=== PATIENT | male | born 1975 | race Caucasian/White ===

== ENCOUNTER 2018-11-02 10:55 | Inpatient (IN) | payer OTHER ==
[~2018-11-02] VITALS: Ht 182.9 cm; Wt 120.2 kg
--- NOTE | 2018-11-02 15:33 | NUR ---
PRE ASSESSMENT: A 42 year old male in intake A/O X 4. He presents with flushed complexion and odorous of ETOH. He reports a 20 yr history of drinking but problematic for the last 7.5 years. He states he is drinking 3000 ml daily and is drinking in the middle of the night and in the morning. He states he cannot function and needs help. Last drank 750 ml today at 1100. BP 144/104 P 102 R 18 O2sat 96% He denies allergies. He denies seizure hx. His gait is steady. Will assess on unit.
[2018-11-02] MEDS ORDERED: TEST200V3 IM (15:45)
--- NOTE | 2018-11-02 16:37 | NUR ---
ADMISSION: A 42 year old male admitted for medically supervised withdrawal from ETOH (white wine).He denies allergies. He denies seizure history. He is A/O X 4 and denies S/I and H/I.He is odorous of ETOH and presents with a flushed complexion. Fine tremors noted to hands. He presents with anxious mood and restricted affect. He states he has never been in in a psychiatric facility and has not experienced ideations or attempts in the past. He does report a history of anxiety. He reports low Testosterone levels and takes 1 ml Q 15 days of Testosterone IM which he brought to facility. He reports a PCP but cannot think of his name at this time. he had a Gastric Bypass in 2006 and lost 100 lbs. He reports he left his job in January at a [employer] due to stress and saw a Psychiatrist for anxiety and stress and filled out paper work to get short term disability and the time ran out to file paperwork so he ended up quitting and not returning to work. He reports he has too much time on his hands and his drinking is out of control. BP 144/104 P 102 R 18 O2 sat 96% SUBSTANCE USE: He reports a 20 yr history of drinking but problematic for the last 7.5 years. He states he is drinking 3000 ml daily and is drinking in the middle of the night and in the morning. He reports he wakes up in the middle of the night shaking and has to drink wine to get back to sleep. He states he also blacks out on occasion. He states he cannot function and is unemployable. He is having problems with his and she is fed up. He reports she drinks but does not have a problem and it is causing them to argue Last drank 750 ml today at 1100. He states he stopped for about a week on his own 4 months ago but the nausea,vomiting sweats and tremors were too much for him to handle. He wants to stop drinking so he can function and go back to work, be a better man and . He reports some barriers he is concerned about are that all of his friends and family are drinkers and social activities are surrounded by alcohol. He reports he has never been to treatment before. Oriented him to staff and unit. UDS collected. Skin check done. Skin warm dry and intact. Will provide safe and supportive environment.
[2018-11-02 17:02] LABS: *AMPHETAMINE, URINE NEGATIVE (NEGATIVE); *BARBITURATE, URINE NEGATIVE (NEGATIVE); *CANNABINOID, URINE NEGATIVE (NEGATIVE); *COCCAINE, URINE NEGATIVE (NEGATIVE); *OPIATE, URINE NEGATIVE (NEGATIVE); *PHENCYCLIDINE SCREEN,URINE NEGATIVE (NEGATIVE)
[2018-11-02] MEDS ORDERED: HYDROXYZINE PAMOATE 25 MG CAPSULE PO PRN (17:30)
[2018-11-02] MEDS ORDERED: MIRALAX 17 GM POWD.PACK PO PRN (17:30)
[2018-11-02] MEDS ORDERED: LORAZEPAM 2 MG/1 ML VIAL IM PRN (17:30)
[2018-11-02] MEDS ORDERED: ACETAMINOPHEN 325 MG TABLET PO PRN (17:30)
[2018-11-02] MEDS ORDERED: MAGNESIUM HYDROXIDE 30 ML LIQUID UDC PO PRN (17:30)
[2018-11-02] MEDS ORDERED: MAG HYDROX/AL HYDROX/SIMETH 30 ML LIQUID UDC PO PRN (17:30)
[2018-11-02] MEDS ORDERED: IBUPROFEN 600 MG TABLET PO PRN (17:30)
[2018-11-02] MEDS ORDERED: ONDANSETRON 4 MG/2 ML VIAL IM PRN (17:30)
[2018-11-02] MEDS ORDERED: ONDANSETRON ODT 4 MG TAB.RAPDIS SL PRN (17:30)
[2018-11-02] MEDS ORDERED: DIAZEPAM 5 MG TABLET PO PRN (17:30)
[2018-11-02] MEDS ORDERED: THIAMINE HCL 200 MG/2 ML VIAL IM ONE (17:30)
[2018-11-02] MEDS ORDERED: DIAZEPAM 10 MG TABLET PO PRN (17:30)
[2018-11-02] MEDS ORDERED: LOPERAMIDE HCL 2 MG CAPSULE PO PRN ×2 (17:30)
[2018-11-02] MEDS ORDERED: SRC ALCOHOL WITHDRAWAL ADMITTING PROTOCOL XX PRN (17:30)
[2018-11-02 18:11] LABS: BASOPHILS % (AUTO) 0.5 % (0.0-2.0); EOSINOPHILS % (AUTO) 0.3 % (0.0-7.0); HEMATOCRIT 46.6 % (36.7-47.1); HEMOGLOBIN 16.1 g/dL (12.5-16.3); LYMPHOCYTES # (AUTO) 1.1 K/uL (20.0-40.0); LYMPHOCYTES % (AUTO) 22.1 % (20.5-51.5); MEAN CORPUSCULAR HEMOGLOBIN 37.5 uug (23.8-33.4); MEAN CORPUSCULAR HGB CONC 34 g/dL (32.5-36.3); MEAN CORPUSCULAR VOLUME 108.9 fL (73.0-96.2); MONOCYTES # (AUTO) 0.4 K/uL (2.0-10.0); NEUTROPHILS # (AUTO) 3.4 K/uL (1.8-8.9); NEUTROPHILS % (AUTO) 68.1 % (38.5-71.5); PLATELET COUNT (AUTO) 186 K/uL (152-348); RED BLOOD CELL COUNT(AUTO) 4.28 MIL/uL (4.06-5.63)
[2018-11-02 18:20] LABS: BILIRUBIN,TOTAL 1.8 mg/dL (0.2-1.0); MAGNESIUM 1.8 mg/dL (1.8-2.4); TOTAL PROTEIN, SERUM 7.2 g/dL (6.4-8.2)
[2018-11-02 18:34] LABS: THYROID STIMULATING HORMONE 2.65 mIU/mL (0.358-3.740)
--- NOTE | 2018-11-02 18:45 | NUR ---
PRN Valium given for CIWA 11 He is tremulous,and reports anxiety,and restlessness. Will endorse reassessment.
[2018-11-02] MEDS: DIAZEPAM 10 MG TABLET PO PRN (18:47)
--- NOTE | 2018-11-02 19:21 | NUR ---
END OF SHIFT: Pt newly admitted. He was given Valium for CIWA 11 and is in bed laying down. He is flushed and his hands are tremulous. He reported some anxiety. Assured him that nursing staff is here 24/ if he needs anything. Call andres in reach. Bed locked and low. Will pass shift report to oncoming night nurse.
--- NOTE | 2018-11-02 19:30 | NUR ---
Start of shift note Patient is a 42 year old male admitted today 11/02/18 for medically supervised ETOH withdrawal. Patient is on fall and seizure precautions. Pt is on PRN Valium. Pt's last CIWA was 11. Per endorsement pt had PRN Valium and needs reassessment. Upon rounds pt was noted in bed watching tv, explained plan of care and SCD's teaching. Pt verbalized understanding, will continue to monitor. Pt seems depressed, withdrawn, flat affect and anxious. Safety measures in place bed locked in low position, side rails up x2 and call light within reach. Applied SCD's to patient.
--- NOTE | 2018-11-02 19:45 | NUR ---
PRN Valium Reassessment Pt was noted in bed resting breathing even and unlabored. Pt verbalized medication was effective and he felt more relax. Safety measures in place will continue to monitor.
[2018-11-02 20:00] VITALS: BP 136/95
--- NOTE | 2018-11-02 20:00 | NUR ---
CIWA Assessment Pt is presenting with withdrawal s/s: mild tremors, sweats, hot and cold flashes and anxiety. Pt's CIWA was 8. Safety measures in place will continue to monitor.
[2018-11-02] MEDS: CLONIDINE HCL 0.1 MG TABLET PO PRN (20:56)
[2018-11-02] MEDS: diphenhydrAMINE 50 MG CAPSULE PO PRN (20:56)
--- NOTE | 2018-11-02 20:56 | NUR ---
PRN Benadryl, Vistaril and Clonidine Pt is presenting with anxiety, difficulty falling asleep and agitation. Administered PRN Benadryl, Vistaril and Clonidine, pt tolerated well and will continue to monitor.
--- NOTE | 2018-11-02 21:56 | NUR ---
Reassessment PRN Benadryl, Vistaril and Clonidine Pt verbalized he is feeling less anxious and agitated and is about to fall asleep. Lights were off and he resting in bed. Medication noted to be effective, will continue to monitor.
[2018-11-03] VITALS (7 sets, daily range): BP systolic 127–148; BP diastolic 85–111
--- NOTE | 2018-11-03 | NUR ---
CIWA Deferred Patient is resting in bed with eyes closed, breathing is even and unlabored. Per protocol CIWA is to be assessed while pt is awake. Safety measures in place and will continue to monitor.
--- NOTE | 2018-11-03 07:06 | NUR ---
End of shift note Patient is a 42 year old male admitted today 11/02/18 for medically supervised ETOH withdrawal. Patient is on fall and seizure precautions. Pt is on PRN Valium. Pt's last CIWA was 8. Pt had PRN Benadryl, Vistaril and Clonidine. Pt had SCD during the night and he return demonstration on how to apply them. Pt slept for 11 hours and had a total intake 1,000 ml. Pt voided x2 and had no bowel movements during this shift. Safety measures are in place bed locked in low position, side rails up x2 and call light within reach. Will endorse to day shift.
--- NOTE | 2018-11-03 07:40 | NUR ---
START OF SHIFT Received report from field sales executive nurse. Pt is lying in bed watching TV. He is a 42 yo Male admitted to [facility] on 11/02 for ETOH withdrawal. He is A&O and ambulatory. He is ordered PRN Valium for the management of withdrawal symptoms. He was administered Benadryl, Vistaril, and Clonidine on field sales executive. Last CIWA was 8 and he slept for 11 hours. Safety measures in place.
[2018-11-03] MEDS ORDERED: TUBERCULIN,PURIF.PROT.DERIV. 5 TU/0.1 ML TEST ID ONE (09:00)
[2018-11-03] MEDS: FOLIC ACID 1 MG TABLET PO SCH (09:30)
[2018-11-03] MEDS: MULTIVITAMINS,THERAPEUTIC TABLET PO SCH (09:30)
[2018-11-03] MEDS: DIAZEPAM 10 MG TABLET PO PRN (09:30)
[2018-11-03] MEDS: THIAMINE HCL 100 MG TABLET PO SCH (09:30)
--- NOTE | 2018-11-03 09:38 | NUR ---
CIWA Pt has tremors, visible sweat on the forehead, facial flushing, anxiety, restlessness, and difficulty concentrating. His room is odorous. CIWA score 15.
--- NOTE | 2018-11-03 09:39 | NUR ---
PRN Valium Pt has tremors, visible sweat on the forehead, facial flushing, anxiety, restlessness, and difficulty concentrating. His room is odorous. CIWA score 15. PRN Valium 10mg administered.
--- NOTE | 2018-11-03 10:40 | NUR ---
PRN Valium reassessment Pt's CIWA score 8. No visible sweat noted and tremors have improved.
[2018-11-03] MEDS: CLONIDINE HCL 0.1 MG TABLET PO PRN ×2 (12:28→21:28)
--- NOTE | 2018-11-03 12:28 | NUR ---
PRN Clonidine Pt's B/P is 148/111 and HR 94. PRN Clonidine administered.
--- NOTE | 2018-11-03 12:48 | NUR ---
Therapist prompted client to attend daily group therapy sessions.
[2018-11-03] MEDS ORDERED: 5 DAY TAPER VALIUM-SERENITY PROTOCOL PO PRN (13:30)
--- NOTE | 2018-11-03 13:30 | NUR ---
PRN Clonidine reassessment PRN Clonidine effective at reducing pt's B/P to 139/95 and HR 90.
[2018-11-03] MEDS: DIAZEPAM 10 MG TABLET PO SCH ×2 (15:25→20:19)
[2018-11-03] MEDS ORDERED: hydrALAZINE HCL 25 MG TABLET PO PRN (17:45)
--- NOTE | 2018-11-03 19:30 | NUR ---
END OF SHIFT Report provided to shift nurse manager nurse. Pt is lying in bed resting. He is a 42 yo Male admitted to [facility] on 11/02 for ETOH withdrawal. He is A&O and ambulatory. 4 Day Valium taper started today. PRN Valium and Clonidine administered. Last CIWA was 13. Safety measures in place.
--- NOTE | 2018-11-03 20:00 | NUR ---
Start of Shift Pt is a 42 year old male admitted for ETOH withdrawal, placed on a 5 day Valium taper. At time of assessment, pt presents in room, lights are off, pt is in bed watching television. Pt is alert/oriented x4, cooperative and responds to questions appropriately. Pt reports feeling anxious, tremors are felt upon touch, skin is flushed and clammy to touch with mild body aches. CIWA 10 medications are due. Safety measure in place, will continue to monitor.
--- NOTE | 2018-11-03 21:28 | NUR ---
PRN Administration Pt with elevated BP 137/103 & HR112. Clonidine 0.1mg PRN administered. Will continue to monitor.
--- NOTE | 2018-11-03 22:30 | NUR ---
PRN Reassessment Upon reassessment, BP 137/85 and pulse 98. Clonidine effective. Safety measures in place, will continue to monitor. Addendum: 11/04/18 at 0139 by PALLAVI PAUL RN CORRECTION: Upon reassessment BP 127/85 and HR 98.
--- NOTE | 2018-11-04 | NUR ---
CIWA deferred CIWA deferred due to pt sleeping, to assess while pt is awake as ordered. Pt refused to be woken up for 0000 VS assessment. Pt is sleeping with respirations even/unlabored. Safety measures in place, will continue to monitor.
--- NOTE | 2018-11-04 04:00 | NUR ---
CIWA deferred CIWA deferred due to pt sleeping, to assess while pt is awake as ordered. Pt refused to be woken up for 0400 VS assessment. Pt is sleeping with respirations even/unlabored. Safety measures in place, will continue to monitor.
[2018-11-04 07:05] LABS: HEPATITIS B SURFACE AG Negative (Negative)
--- NOTE | 2018-11-04 07:05 | NUR ---
End of Shift Pt is a 42 year old male admitted for ETOH withdrawal, placed on a 5 day Valium taper. During shift, pt presented in room, watching television. Pt is alert/oriented x4, cooperative and responded to questions appropriately. Pt reported feeling anxious, tremors are felt upon touch, skin flushed and clammy to touch with mild body aches, CIWA 10. Scheduled Valium administered. PRN Clonidine 0.1mg PRN administered for elevated BP 137/103 & HR112. Medication effective in decreased BP 127/85 and HR 98. Pt slept for 4 hours, intake 2500 ml PO & x2 urine. Safety measures in place, endorsed to day shift nurse.
--- NOTE | 2018-11-04 07:24 | NUR ---
BEGINNING OF SHIFT Patient endorsement report received from slot shift supervisor nurse, all pertinent information was discussed. Patient with admitting dx: bzo/opiate withdrawal, patient currently with ongoing 5 day valium and 5 day subutex taper as ordered. Per slot shift supervisor patient with last COW score of: 7, and last CIWA score of: 9. Received PRN: Trazodone, Clonidine, Motrin, and Tylenol. Per slot shift supervisor slept for 6 hours. Received patient awake, alert and oriented x4, educated regarding plan of care for the day and medication regimen with good verbal understanding. Safety measures are in place. call light kept with in reach, will continue to monitor closely. Addendum: 11/04/18 at 0736 by JOEY BAILEY LVN DISREGARD NOTE ABOVE, INCORRECT PATIENT
--- NOTE | 2018-11-04 07:37 | NUR ---
BEGINNING OF SHIFT Patient endorsement report received from night warehouse selector nurse, all pertinent information was discussed. Patient with admitting dx: etoh withdrawal. Patient received PRN: clonidine. Last CIWA score fo: 10. Slept for 4 hours. Received in bed with eyes closed, respirations even and unlabored. Will educate regarding plan of care for the day and medication regimen. Safety measures are in place. call light with in reach. Will continue to monitor.
[2018-11-04 09:11] VITALS: BP 126/82
[2018-11-04] MEDS: FOLIC ACID 1 MG TABLET PO SCH (09:12)
[2018-11-04] MEDS: DIAZEPAM 5 MG TABLET PO SCH ×4 (09:13→20:33)
[2018-11-04] MEDS: THIAMINE HCL 100 MG TABLET PO SCH (09:13)
[2018-11-04] MEDS: MULTIVITAMINS,THERAPEUTIC TABLET PO SCH (09:13)
[2018-11-04 12:45] VITALS: BP 141/97
[2018-11-04 17:07] VITALS: BP 138/95
--- NOTE | 2018-11-04 18:56 | NUR ---
END OF SHIFT Patient continues under close observation, ongoing 5 day Valium taper as ordered, during shift noted exhibiting the s/sx of withdrawal: tremors that can be felt but not seen, barely sweating, anxiety and agitation, with last CIWA score of: 10. Received no PRN medications during shift. Encouraged to attend group therapies/sessions to learn new coping skills to prevent relapse. Denies SI/HI. Safety measures are in place. Call light kept with in reach, will continue to monitor. Patient endorsed to awake overnight counselor nurse, all pertinent information was discussed.
--- NOTE | 2018-11-04 19:15 | NUR ---
Start of Shift Note: Patient is a 42 y.o male admitted on 11/02/18 for medically supervised withdrawal from ETOH use. Patient currently on day #2 of his 5 day Valium taper. Pt tolerating well. His last CIWA is 10. No PRN medications received during day shift. Encourage patient to increase fluid intake. Educated pt of current plan of care and medication regimen for the night. Safety measures in place. Bed alarm activated. Both side rails up. Call light within pts reach. Will continue to monitor patient.
[2018-11-04 20:00] VITALS: BP 139/100
--- NOTE | 2018-11-04 20:00 | NUR ---
CIWA Assessment Pt noted in bed, awake, alert & oriented x4. Pt noted with withdrawal symptoms such as flushed face, clammy skin, anxiety, agitation and fine tremors. CIWA 9 noted at this time.
[2018-11-04] MEDS: CLONIDINE HCL 0.1 MG TABLET PO PRN (20:33)
--- NOTE | 2018-11-04 20:33 | NUR ---
PRN Clonidine Patient noted with elevated BP 145/111, MN 111. PRN Clonidine given as ordered. Will contineu to monitor patient.
--- NOTE | 2018-11-04 21:33 | NUR ---
PRN Reassessment Clonidine effective. Current B/P is 139/97, [place] 103 after 1 hour of medication administration. Will continue to monitor patient.
[2018-11-04 22:28] VITALS: BP 139/97
--- NOTE | 2018-11-05 | NUR ---
CIWA deferred Pt refused to be woken up for vitals at this time. Pt in bed with eyes close. No acute distress noted. respiration even & unlabored. CIWA deferred d/t pt is asleep and to be reassess when pt's is awake.. Will continue to monitor patient.
--- NOTE | 2018-11-05 04:00 | NUR ---
CIWA deferred Pt refused vitals. Pt asleep in bed with eyes close. No acute distress noted. Breathing even & unlabored. CIWA deferred as ordered and will reassess when pt's is awake.. Will continue to monitor patient.
--- NOTE | 2018-11-05 07:06 | NUR ---
End of Shift Note: Patient continues on his 5-day Valium taper and tolerating well. Pt stable throughout the shift with no acute distress noted. During shift, pt stayed in his room most of the time. Pt noted withdrawal symptoms such as flushed face, anxiety, agitation, clammy skin, & fine tremors. Last CIWA is 9. Pt received PRN Clonidine for increased in BP and was effective. Encourage pt to increase fluid intake. All due medications and all needs attended. Continue to closely monitor patient for any s/s of withdrawal. Safety measures in place. Bed locked in lowest position. Both side rails up for safety. Call light within pts reach. Will endorse pt to day shift nurse.
[2018-11-05 08:00] VITALS: BP 139/98
--- NOTE | 2018-11-05 08:00 | NUR ---
Start of Shift Notes/CIWA Assessment: Received endorsement from night nurse. Patient is a 42 year old male admitted for ETOH withdrawal who was placed on a 5-day Valium taper as ordered No adverse reactions noted. Per night report, patient was given PRN Clonidine during the night. Last CIWA 9. Slept for 5 hours. Patient is seen in his room. Appears flushed. Oriented x 4. Denies AV hallucinations. He is noted with gross tremors, restless, reddened eyes. He complains of not sleeping well due to the mattress. Offered additional blankets and pillows for comfort but patient states "It's OK, I'll deal with it." He also complains of fatigue, anxiety, agitation, and generalize discomfort. CIWA 14. Educated patient on his current plan of care for the day and his medication regimen. Encouraged oral fluid intake and encouraged group participation to learn new skills to prevent relapse. All needs met and attended. Will continue to monitor closely.
[2018-11-05 08:46] LABS: BILIRUBIN,TOTAL 1.3 mg/dL (0.2-1.0); MAGNESIUM 1.8 mg/dL (1.8-2.4); POTASSIUM 3.6 mmol/L (3.5-5.1); TOTAL PROTEIN, SERUM 6.1 g/dL (6.4-8.2)
[2018-11-05] MEDS: THIAMINE HCL 100 MG TABLET PO SCH (08:52)
[2018-11-05] MEDS: DIAZEPAM 5 MG TABLET PO SCH ×3 (08:52→21:40)
[2018-11-05] MEDS: MULTIVITAMINS,THERAPEUTIC TABLET PO SCH (08:52)
[2018-11-05] MEDS: FOLIC ACID 1 MG TABLET PO SCH (08:52)
[2018-11-05 12:00] VITALS: BP 130/90
--- NOTE | 2018-11-05 15:51 | NUR ---
Therapist prompted client to attend group therapy.
[2018-11-05 16:00] VITALS: BP 132/85
--- NOTE | 2018-11-05 19:05 | NUR ---
End of Shift Notes: Patient continues to be on 5-day Valium taper as ordered. No adverse reactions noted. BP closely monitored. No significant abnormalities noted. Withdrawal symptoms were closely monitored. Initial CIWA 14, patient presented with facial flushing, restlessness, anxiety, agitation, gross tremors, fatigue and generalized discomfort. Last CIWA 12. Patient states that Valium has been effective in reducing his withdrawal symptoms. Patient was given his Testosterone injection today per MD. Appetite good. Able to participate in group and activities despite his withdrawal symptoms. All needs met and attended. Will continue to monitor closely.
--- NOTE | 2018-11-05 19:25 | NUR ---
START OF SHIFT Patient is a 42-year-old male admitted on 11/02/18 for ETOH withdrawal. Patient is currently on a 5-day Valium taper, tolerating well; today is day 3 of taper. Patient's last CIWA was 12, per endorsement. Patient received no PRN medications today. Upon assessment, patient appears flushed and slightly diaphoretic. Patient is unshaved and his room is in disarray. Patient reports difficulty sleeping and verbalizes concern about sleeping tonight. Patient is on fall and seizure precautions with no previous history of seizure. Safety measures in place, side rails up x2, bed locked in low position, call light within reach. Will continue to monitor.
[2018-11-05 20:00] VITALS: BP 133/97
[2018-11-05] MEDS: diphenhydrAMINE 50 MG CAPSULE PO PRN (21:40)
--- NOTE | 2018-11-05 21:40 | NUR ---
PRN BENADRYL Patient reports difficulty sleeping. PRN Benadryl given PO. Safety measures in place, side rails up x2, bed locked in low position, call light within reach. Will monitor for effectiveness.
--- NOTE | 2018-11-05 22:40 | NUR ---
PRN BENADRYL REASSESSMENT Patient states he is ready to sleep, lights off and television turned off. PRN Benadryl noted to be effective. Safety measures in place, side rails up x2, bed locked in low position, call light within reach. Will continue to monitor.
--- NOTE | 2018-11-06 | NUR ---
VITALS REFUSED Vitals refused at this time, patient did not want to be disturbed while sleeping. Respirations even and unlabored, 14/min. Safety measures in place, side rails up x2, bed locked in low position, call light within reach. Will continue to monitor.
--- NOTE | 2018-11-06 04:00 | NUR ---
VITALS REFUSED Patient refused vitals at this time, respirations even and unlabored, 16/min. Safety measures in place, side rails up x2, bed locked in low position, call light within reach. Will continue to monitor.
--- NOTE | 2018-11-06 07:22 | NUR ---
END OF SHIFT Patient is a 42-year-old male admitted on 11/02/18 for ETOH withdrawal. Patient is currently on a 5-day Valium taper, tolerating well; today will be day 4 of taper. Patient's last CIWA was 10. Patient received PRN Benadryl, noted to be effective. Patient's room is odorous and patient has been encouraged to maintain hygiene. Patient slept for 7 hours, total intake of 1,500mL, void x1, stool x1. Patient is on fall and seizure precautions with no previous history of seizure. Safety measures in place, side rails up x2, bed locked in low position, call light within reach. Will endorse to day shift.
--- NOTE | 2018-11-06 07:30 | NUR ---
Start of Shift Notes: Received endorsement from night nurse. Patient is a 42 year old male admitted for ETOH withdrawal who was placed on a 5-day Valium taper as ordered No adverse reactions noted. Per night report, patient was given PRN Benadryl during the night. Last CIWA 11. Slept for 7 hours. Patient is seen in his room. Appears flushed. Oriented x 4. Denies AV hallucinations. He is noted with gross tremors, restless, sweating, and generalized discomfort. He also complains of fatigue, anxiety. Educated patient on his current plan of care for the day and his medication regimen. Encouraged oral fluid intake and encouraged group participation to learn new skills to prevent relapse. All needs met and attended. Will continue to monitor closely.
[2018-11-06 08:00] VITALS: BP 128/97
[2018-11-06] MEDS: THIAMINE HCL 100 MG TABLET PO SCH (08:34)
[2018-11-06] MEDS: MULTIVITAMINS,THERAPEUTIC TABLET PO SCH (08:34)
[2018-11-06] MEDS: DIAZEPAM 5 MG TABLET PO SCH ×2 (08:34→21:43)
[2018-11-06] MEDS: FOLIC ACID 1 MG TABLET PO SCH (08:34)
[2018-11-06 12:00] VITALS: BP 134/94
[2018-11-06 16:00] VITALS: BP 136/90
--- NOTE | 2018-11-06 19:07 | NUR ---
End of Shift Notes: Patient continues to be on 5-day Valium taper as ordered. No adverse reactions noted. BP closely monitored. No significant abnormalities noted. Withdrawal symptoms were closely monitored. Initial CIWA 12, patient presented with facial flushing, restlessness, anxiety, agitation, gross tremors, fatigue and generalized discomfort. Last CIWA 9. Patient states that Valium has been effective in reducing his withdrawal symptoms. Appetite good. Able to participate in group and activities despite his withdrawal symptoms. All needs met and attended. Will continue to monitor closely.
--- NOTE | 2018-11-06 19:25 | NUR ---
START OF SHIFT Patient is a 42-year-old male admitted on 11/02/18 for ETOH withdrawal. Patient is currently on a 5-day Valium taper, tolerating well; today is day 4 of taper. Patient's last CIWA was 9, per endorsement. Patient received no PRN medications today. Upon assessment, patient appears disheveled, unshaved, and slightly flushed. Patients room is odorous and disorganized. Patient reports difficulty sleeping and requests Benadryl later in the evening. Patient is on fall and seizure precautions with no previous history of seizure. Safety measures in place, side rails up x2, bed locked in low position, call light within reach. Will continue to monitor.
[2018-11-06 20:00] VITALS: BP 137/96
[2018-11-06] MEDS: diphenhydrAMINE 50 MG CAPSULE PO PRN (21:43)
--- NOTE | 2018-11-06 21:43 | NUR ---
PRN BENADRYL Patient reports difficulty sleeping, difficulty falling asleep and difficulty staying asleep. PRN Benadryl 50mg given PO. Safety measures in place, side rails up x2, bed locked in low position, call light within reach. Will monitor for effectiveness.
--- NOTE | 2018-11-06 22:43 | NUR ---
PRN BENADRYL REASSESSMENT Patient reports feeling sleepy and states that he will try to sleep soon. PRN Benadryl noted to be effective. Safety measures in place, side rails up x2, bed locked in low position, call light within reach. Will continue to monitor.
--- NOTE | 2018-11-07 | NUR ---
VITALS REFUSED Patient requested not to be disturbed while sleeping due to the fact that he has such difficulty falling back asleep. Vitals refused at this time. Respirations even and unlabored, 16/min. Safety measures in place, side rails up x2, bed locked in low position, call light within reach. Will continue to monitor.
--- NOTE | 2018-11-07 04:00 | NUR ---
VITALS REFUSED Patient refused vitals, respirations even and unlabored, 16/min. Safety measures in place, side rails up x2, bed locked in low position, call light within reach. Will continue to monitor.
--- NOTE | 2018-11-07 07:05 | NUR ---
END OF SHIFT Patient is a 42-year-old male admitted on 11/02/18 for ETOH withdrawal. Patient is currently on a 5-day Valium taper, tolerating well; today will be final day of taper. Patient's last CIWA was 10. Patient received PRN Benadryl which was noted to be effective. Patient slept for 8 hours, total intake of 1,275mL, void x2, stool x0. Patient is on fall and seizure precautions with no previous history of seizure. Safety measures in place, side rails up x2, bed locked in low position, call light within reach. Will endorse to day shift.
--- NOTE | 2018-11-07 07:30 | NUR ---
Start of Shift Note: Report received from overnight stocker nurse. Last CIWA 10. Pt slept for 10 hours. Upon start of shift pt was in bed with eyes closed. During assessment pt stated he is anxious because he is going to be discharged tomorrow. Educated pt about current plan of care. Pt verbalized understanding. Pt denies pain at this time. Pt is currently on Valium taper to manage withdrawal symptoms. Bed in lowest position. Side rails up x2. Call light functioning and within reach. All needs attended and met. Will continue to monitor.
[2018-11-07 08:00] VITALS: BP 144/99
[2018-11-07] MEDS: THIAMINE HCL 100 MG TABLET PO SCH (08:36)
[2018-11-07] MEDS: FOLIC ACID 1 MG TABLET PO SCH (08:36)
[2018-11-07] MEDS: MULTIVITAMINS,THERAPEUTIC TABLET PO SCH (08:36)
[2018-11-07] MEDS ORDERED: DIAZEPAM 5 MG TABLET PO SCH (09:00)
[2018-11-07 12:00] VITALS: BP 133/93
--- NOTE | 2018-11-07 12:11 | NUR ---
Therapist prompted client to attend group therapy sessions.
[2018-11-07] MEDS ORDERED: DIPH50CA37 PO (15:05)
[2018-11-07 16:00] VITALS: BP 152/96
--- NOTE | 2018-11-07 19:15 | NUR ---
End of Shift Note: Pt is currently in room watching TV. No PRN medications given. Last CIWA 6. Pt has completed Valium taper to manage withdrawal symptoms. Pt is scheduled to be discharged to [facility]. Call light functioning and within reach. All needs attended and met. Endorsed to truck safety inspector nurse.
--- NOTE | 2018-11-07 19:35 | NUR ---
START OF SHIFT Patient is a 42-year-old male admitted on 11/02/18 for ETOH withdrawal. Patient has completed a 5-day Valium taper today, tolerated well, scheduled for discharge tomorrow. Patients last CIWA was 6 per endorsement. Patient did not receive any PRN medications today. Upon assessment, patient is unshaven and flushed. Patient reports difficulty sleeping and requests Benadryl again tonight. Patients room is odorous and untidy. Patient is on fall and seizure precautions with no previous history of seizure. Safety measures in place, side rails up x2, bed locked in low position, call light within reach. Will continue to monitor.
[2018-11-07 20:00] VITALS: BP 141/95
[2018-11-07] MEDS: diphenhydrAMINE 50 MG CAPSULE PO PRN (20:59)
--- NOTE | 2018-11-07 20:59 | NUR ---
PRN BENADRYL Patient reports difficulty sleeping and requests sleep aid. PRN Benadryl 50mg given PO. Safety measures in place, side rails up x2, bed locked in low position, call light within reach. Will monitor for effectiveness.
--- NOTE | 2018-11-07 21:59 | NUR ---
PRN BENADRYL REASSESSMENT Patient reports feeling ready to sleep. PRN Benadryl noted to be effective. Safety measures in place, side rails up x2, bed locked in low position, call light within reach. Will continue to monitor.
--- NOTE | 2018-11-08 | NUR ---
VITALS REFUSED Patient refused midnight vitals. Respirations even and unlabored, 16/min. Safety measures in place, side rails up x2, bed locked in low position, call light within reach. Will continue to monitor.
--- NOTE | 2018-11-08 04:00 | NUR ---
VITALS REFUSED Vitals refused at 0400. Respirations even and unlabored at this time, 16/min. Safety measures in place, side rails up x2, call light within reach, bed locked in low position. Will continue to monitor.
--- NOTE | 2018-11-08 07:20 | NUR ---
END OF SHIFT Patient is a 42-year-old male admitted on 11/02/18 for ETOH withdrawal. Patient has completed a 5-day Valium taper yesterday, tolerated well, scheduled for discharge this morning. Patients last CIWA was 7. Patient received PRN Benadryl which was noted to be somewhat effective. Patient stated that his experience was positive at [facility] and that his discharge will be bittersweet. Patient slept for 6 hours, total intake of 2,000mL, void x2, stool x0. Patient is on fall and seizure precautions with no previous history of seizure. Safety measures in place, side rails up x2, bed locked in low position, call light within reach. Will endorse to day shift.
--- NOTE | 2018-11-08 07:40 | NUR ---
START OF SHIFT Received report from lieutenant shift supervisor nurse. Pt is getting ready for the day. He is a 42 yo male admitted to [facility] on 11/02 for ETOH withdrawal. He is A&O and ambulatory with a steady gait. He completed a 5 Day Valium taper and is scheduled for discharge today. PRN Benadryl administered on lieutenant shift supervisor. Last CIWA was 7 and he slept for 6 hours. Respirations even and unlabored, skin is warm and dry. Mild hand tremors noted. He reports that he is looking forward to the next step in treatment. Provided support and encouragement. Safety measures in place.
[2018-11-08 08:00] VITALS: BP 143/102
[2018-11-08] MEDS: THIAMINE HCL 100 MG TABLET PO SCH (08:00)
[2018-11-08] MEDS: CLONIDINE HCL 0.1 MG TABLET PO PRN (08:00)
[2018-11-08] MEDS: MULTIVITAMINS,THERAPEUTIC TABLET PO SCH (08:00)
[2018-11-08] MEDS: FOLIC ACID 1 MG TABLET PO SCH (08:00)
--- NOTE | 2018-11-08 08:03 | NUR ---
PRN Clonidine Pt's B/P is 143/102. PRN Clonidine administered.
[2018-11-08 09:00] VITALS: BP 138/92
--- NOTE | 2018-11-08 09:00 | NUR ---
PRN Clonidine reassessment PRN Clonidine effective. Pt's B/P is 138/92.
--- NOTE | 2018-11-08 09:55 | NUR ---
DISCHARGE Pt is in stable condition. Vitals WNL. He is A&O with skin intact. Pt denies SI/HI. All discharge paperwork completed and signed. Pt educated regarding discharge instructions and he verbalized understanding. Last CIWA was 4 at 0755. Pt left the building with all of his belongings, medications, and prescriptions at 0950 on 11/08/18. MD and Psychiatrist aware of pt's discharge.
== END 2018-11-08 09:50 | disposition other institution (70) | DRG 895 ==
LOC: SRC 14:46
PROVIDERS: ADMIT Family Medicine Addiction Medicine; ATTEND Family Medicine Addiction Medicine
PROC: HZ2ZZZZ Detoxification Services for Substance Abuse Treatment (ICD-10-PCS; principal; 2018-11-02)
PROC: HZ31ZZZ Individual Counseling for Substance Abuse Treatment, Behavioral (ICD-10-PCS; 2018-11-03)
PROC: HZ41ZZZ Group Counseling for Substance Abuse Treatment, Behavioral (ICD-10-PCS; 2018-11-03)
DX: F10.230 Alcohol dependence with withdrawal, uncomplicated (principal); Y90.4 Blood alcohol level of 80-99 mg/100 ml; E29.1 Testicular hypofunction; F41.1 Generalized anxiety disorder; R74.0 Nonspecific elevation of levels of transaminase and lactic acid dehydrogenase [LDH]; Z63.9 Problem related to primary support group, unspecified; Z98.84 Bariatric surgery status; Z56.0 Unemployment, unspecified
CPT/HCPCS: 36415; 70030-TC; 80307; 83690; 83735; 84443; 85025; 86580; 86592; 86705; 86803; 87340; 87806; A4663; G0480; J1071; Q0163